=== PATIENT | male | born 1970 | race Hispanic/Latino ===

== ENCOUNTER 2019-03-25 19:08 | Emergency (ER) | payer BC ==
[~2019-03-25 19:08] MED LIST: AMLO5TAB9 PO; DICY20TA11 PO; IBUP-2070 PO; LOSA50TA64 PO; OMEP20CA10 PO; ONDA4TAB7 SL; TRAM50TA4 PO
[2019-03-25] MEDS ORDERED: DEXAMETHASONE SOD PHOSPHATE 10MG/ML 1ML VIAL ONE (20:02)
[2019-03-25] MEDS ORDERED: KETOROLAC TROMETHAMINE 60 MG/2 ML VIAL ONE (20:03)
== END 2019-03-25 20:33 | disposition home or self-care (01) ==
LOC: EDH 19:08
DX: M54.42 Lumbago with sciatica, left side (principal); I10 Essential (primary) hypertension
CPT/HCPCS: 96372 ×2; 99284; J1100; J1885

== ENCOUNTER 2024-05-21 19:03 | Emergency (ER) | payer BC ==
[~2024-05-21] VITALS: Ht 182.9 cm; Wt 117.9 kg
[~2024-05-21 19:03] MED LIST changes: +AMLO-257 PO; -AMLO5TAB9 PO; -DICY20TA11 PO; +DICY20TA3 PO; -OMEP20CA10 PO; +OMEP20CA12 PO
[2024-05-21 19:04] VITALS: BP 117/82; PULSE 102; RESP 20
[2024-05-21] MEDS ORDERED: ONDANSETRON 4MG INJ IVP ONE (19:30)
[2024-05-21] MEDS ORDERED: MORPHINE 2 MG SYG IM ONE (19:30)
[2024-05-21] MEDS ORDERED: FAMOTIDINE 20MG VIAL IV ONE (19:30)
[2024-05-21 20:47] LABS: BASOPHILS # (AUTO) 0.06 K/uL (0.00-0.20); EOSINOPHILS # (AUTO) 0.19 K/uL (0.00-0.70); IMMATURE GRANULOCYTE ABSOLUTE 0.02 K/uL (0-1); LYMPHOCYTES # (AUTO) 1.5 K/uL (1.0-4.8); LYMPHOCYTES % (AUTO) 23.5 % (21.0-51.0); MEAN CORPUSCULAR HEMOGLOBIN 31.4 pg (27.0-33.0); MEAN CORPUSCULAR HGB CONC 34.4 g/dL (32.0-36.0); MEAN CORPUSCULAR VOLUME 91.1 fL (79-99); MONOCYTES # (AUTO) 0.7 K/uL (0.1-1.0); MONOCYTES % (AUTO) 11.4 % (3.0-13.0); NEUTROPHILS # (AUTO) 3.8 K/uL (1.8-7.7); NEUTROPHILS % (AUTO) 60.8 % (40.0-77.0); PLATELET COUNT (AUTO) 126 K/uL (130-400); RED BLOOD CELL COUNT(AUTO) 4.94 MIL/uL (4.50-6.20); WHITE BLOOD COUNT (AUTO) 6.3 K/uL (4.8-10.8)
[2024-05-21 20:48] LABS: ADD UA MICROSCOPIC YES; APPEARANCE,URINE CLEAR (CLEAR); BILIRUBIN,URINE NEGATIVE (NEGATIVE); COLOR,URINE LIGHT-YELLOW (YELLOW); GLUCOSE, URINE (UA) NEGATIVE (NEGATIVE); KETONES,URINE NEGATIVE (NEGATIVE); LEUKOCYTE ESTERASE ,URINE NEGATIVE Leu/uL (NEGATIVE); NITRATE,URINE NEGATIVE (NEGATIVE); OCCULT BLOOD,URINE NEGATIVE (NEGATIVE); PH,URINE 5.5 (5.0-8.0); PROTEIN,URINE NEGATIVE (NEGATIVE); UROBILINOGEN,URINE 0.2 mg/dL (0.2-1.0)
[2024-05-21 20:49] LABS: MUCUS,URINE RARE LPF (None Seen); SQUAMOUS EPITHELIAL CELL,UR RARE /HPF (0-2); WBC,URINE 0-1 /HPF (0-1)
[2024-05-21 21:00] LABS: CREATININE 1.5 mg/dL (0.5-1.3); POTASSIUM 3.8 mmol/L (3.5-5.1)
[2024-05-21 21:05] LABS: ALBUMIN 3.8 g/dL (3.5-5.0); TOTAL PROTEIN, SERUM 7.1 g/dL (6.0-8.3)
== END 2024-05-21 22:53 | disposition left against medical advice (07) ==
LOC: EDH 19:03
DX: R10.13 Epigastric pain (principal); I10 Essential (primary) hypertension; Z98.890 Other specified postprocedural states; Z79.899 Other long term (current) drug therapy
CPT/HCPCS: 36415; 71045; 80053; 81001; 83690; 84484; 85025; 93005